=== PATIENT | male | born 1965 | race Caucasian/White ===

== ENCOUNTER 2019-04-06 07:18 | Day surgery (SDC) | payer OTHER ==
[2019-04-04 16:17] VITALS: BMI 32.3
[2019-04-06] MEDS ORDERED: LIDOCAINE HCL/PF 2% SDV 5ML VIAL ONE (08:26)
[2019-04-06] MEDS ORDERED: PROPOFOL 20 ML ONE ×3 (08:26→09:36)
[2019-04-06] MEDS ORDERED: DEXAMETHASONE SOD PHOSPHATE 4 MG/1 ML VIAL ONE (08:27)
[2019-04-06] MEDS ORDERED: KETOROLAC TROMETHAMINE 30 MG/1 ML VIAL ONE (08:27)
[2019-04-06] MEDS ORDERED: MIDAZOLAM HCL 2 MG/2 ML SINGLE DOSE VIAL ONE ×3 (08:28→08:34)
[2019-04-06] MEDS ORDERED: DEXAMETHASONE SOD PHOSPHATE/PF 10 MG/ML SDV ONE (08:31)
[2019-04-06] MEDS ORDERED: BUPIVACAINE HCL/PF 0.5% (5 MG/ML) 30 ML VIAL IJ ONE (08:31)
--- NOTE | 2019-04-06 08:52 | HP ---
Satellite [facility] - Chief Complaint Chief Complaint: left shoulder pain - Past Medical History Allergies/Adverse Reactions: Allergies Allergy/AdvReac Type Severity Reaction Status Date / Time No Known Allergies Allergy Verified 04/06/19 08:01 - Current Medications Current Medications: Home Medications Medication Instructions Recorded Rosuvastatin Calcium [Crestor] 5 mg PO HS 04/04/19 Sertraline HCl [Zoloft] 50 mg PO DAILY 04/04/19 Oxycodone HCl/Acetaminophen 1 - 2 tab PO Q6H #30 tab MDD 6 04/06/19 [Percocet 5-325 mg Tablet] Satellite Physical Exam - Physical Examination Vital Signs: Vital Signs Period Temp Pulse Resp BP Sys/Santoyo Pulse Ox Last 24 Hr 97.4 F 62 18 128/86 97 General Appearance: Well Nourished, Well Developed, Alert & Oriented x3 ENT: Clear Lung: Normal air movement Heart: Regular rate & rhythm Extremities: Other (left shoulder- + ttp, decr rom , + empty can, + neer, + moser, nvi, MRI + rct) Neurological: Intact, Alert, Oriented Satellite Impression/Plan - Impression/Plan Impression: left shoulder rct Operative Procedure: left shoulder arthroscopy with RCR, SAD Date to be Performed: 04/06/19
[2019-04-06] MEDS ORDERED: oxyCODONE HCL 5 MG TABLET PO PRN ×2 (08:53)
[2019-04-06] MEDS ORDERED: ONDANSETRON 4 MG/2 ML VIAL IVPUSH PRN (08:53)
[2019-04-06] MEDS ORDERED: LACTATED RINGERS SOLUTION 1,000 ML IV SCH (09:00)
[2019-04-06] MEDS ORDERED: ceFAZolin 2 GRAM PREMIX BAG IVPB ONE (09:28)
[2019-04-06] MEDS ORDERED: ceFAZolin SODIUM 1 GM VIAL ONE (09:32)
[2019-04-06] MEDS ORDERED: SODIUM CHLORIDE 0.9% P/F 10 ML VIAL IJ ONE (09:32)
[2019-04-06] MEDS ORDERED: oxyCODONE HCL 10 MG SUSTAINED ACTING TABLET PO SCH (10:00)
[2019-04-06] MEDS ORDERED: DESFLURANE GAS 240 ML BOTTLE IH ONE (10:24)
--- NOTE | 2019-04-06 10:29 | OP ---
Operative Note - Note: Operative Date: 04/06/19 ([facility]) Pre-Operative Diagnosis: left shoulder rct Operation: left shoulder arthroscopy with RCR, SAD Post-Operative Diagnosis: Same as Pre-op Surgeon: Richard Tello Waste Minimization Technician: Quentin Etienne Anesthesiologist/SUPERVISOR SEWING DEPARTMENT: Fidencio Clemente Anesthesia: General, Local Specimens Removed: shavings Estimated Blood Loss (mls): 5
[2019-04-06] MEDS ORDERED: ACETAMINOPHEN INJECTION 100 ML IVPB ONE (10:57)
[2019-04-06] MEDS ORDERED: ACETAMINOPHEN 1000 MG/100 ML VIAL (NON FORMULARY) IVPB ONE ×2 (11:00)
[2019-04-06 11:54] VITALS: TEMP 97.5
[2019-04-06] MEDS ORDERED: ONDANSETRON 4 MG/2 ML VIAL IVPUSH ONE (13:02)
[2019-04-06] MEDS ORDERED: ONDANSETRON 4 MG/2 ML VIAL ONE (13:04)
[2019-04-06 14:13] VITALS: BP 120/80; PULSE 70
--- NOTE | 2019-04-06 21:06 | OP ---
DATE OF OPERATION: 04/06/2019 PREOPERATIVE DIAGNOSIS: Left rotator cuff tear. POSTOPERATIVE DIAGNOSIS: Left rotator cuff tear. PROCEDURE: Arthroscopy left shoulder, subacromial decompression, and rotator cuff repair. SURGICAL ATTENDING: Richard Tello MD STEAM CRANE OPERATOR: PATRICIA Calderon ANESTHESIA: Regional and general. CLOSURE: Two SwiveLocks with suture for rotator cuff, 3-0 nylon for skin. ESTIMATED BLOOD LOSS: Negligible. COMPLICATIONS: None. CONDITION: To the recovery room in stable condition. DESCRIPTION OF PROCEDURE: Patient was taken to the operating room on April 06, 2019. Regional and general anesthesia were administered by the anesthesiologist. IV Kefzol was administered prophylactically prior to the case. Patient was placed in the beach chair position with all prominences well padded. The left shoulder area was prepped and draped in the usual sterile fashion. First, a diagnostic arthroscopy of the glenohumeral joint was performed. The posterior portal was made 2 fingerbreadths below the acromion, 1st with a 15 blade followed by a blunt trocar. Circumferential exam of the glenohumeral joint revealed the following: Intact glenohumeral head articular cartilage, intact biceps and biceps anchor, intact labrum circumferentially, loose bodies in the axillary pouch. Subscapularis was intact through its insertion. Looking superiorly, the rotator cuff was found to have at least a high-grade partial-thickness tear near supraspinatus insertion. The fluid was drained from the shoulder, and the trocar was removed. The posterior trocar was redirected in the subacromial space. The accessory lateral portal was made with a 15 blade followed by a blunt trocar. A large amount of subacromial bursal tissue was entered. This was debrided using the ArthroCare and the shaver. The large subacromial spur was seen anteriorly. An acromioplasty was performed gaining sufficient height for the rotator cuff underneath. Coracoid acromial ligament was identified and detached off the anterior acromion and was further debrided. Looking inferiorly, soft tissue encased in the humeral head was debrided using the shaver and the ArthroCare device. The rotator cuff was found to have a high-grade partial-thickness tear. Gentle probing near the greater tuberosity revealed that the thickness of the rotator cuff was minimal at best. This area was shaved, which produced and visualized the undersurface tear. The leading edge was debrided. The bony surface underneath was debrided as was soft tissue getting a bleeding surface for re-implantation. Two horizontal mattress SutureTape sutures were placed, 1 anterior, 1 posteriorly, and they were fixated to 2 SwiveLocks, 1 anterior, 1 posteriorly reducing the rotator cuff to the greater tuberosity. The sutures were cut snugly to bone. A range of motion revealed excellent stability of the repair as well as excellent clearance in the subacromial space. The fluid was drained. The portals were closed using 3-0 nylon. Sterile Aquacel dressing followed by shoulder immobilizer applied. Patient awakened from anesthesia and transferred to recovery room in stable condition. No complications. Estimated blood loss negligible. Madhav STOUT/[id number]
--- NOTE | 2019-04-08 18:15 | PATH ---
Surgical Pathology Report Patient Name: JIN BAKER Med. Rec. #: [id number] /Age/Gender: 1965 (Age: 53) / M Account: [id number] Location: [facility] Taken: 04/06/2019 Received: 04/07/2019 Reported: 04/08/2019 Physicians: Richard Tello M.D. Specimen(s) Received SHOULDER SHAVINGS, LEFT Clinical History Tear of left shoulder Final Diagnosis SHOULDER SHAVINGS, LEFT, ARTHROSCOPY AND SUBACROMIAL DECOMPRESSION: FRAGMENTS OF BENIGN CARTILAGE, BONE, DENSE FIBROCONNECTIVE TISSUE, ADIPOSE TISSUE, AND SKELETAL MUSCLE. Electronically Signed Misty Loya M.D. Gross Description Received in formalin, labeled "left shoulder shavings," is a 4.5 x 4.0 x 0.4 cm. aggregate of spivey-yellow soft tissue fragments. A metals sales representative portion is submitted in one cassette. DL/04/07/2019 saudi04/07/2019
== END 2019-04-06 13:45 | disposition home or self-care (01) ==
LOC: JASU-SURG 07:18
PROVIDERS: ATTEND Orthopaedic Surgery
PROC: 0LQ24ZZ Repair Left Shoulder Tendon, Percutaneous Endoscopic Approach (ICD-10-PCS; principal; 2019-04-06 09:00)
PROC: 0RNK4ZZ Release Left Shoulder Joint, Percutaneous Endoscopic Approach (ICD-10-PCS; 2019-04-06 09:00)
DX: M75.102 Unspecified rotator cuff tear or rupture of left shoulder, not specified as traumatic (principal)
CPT/HCPCS: 88304-TC; 94760; J0131

== ENCOUNTER 2022-03-26 04:02 | Day surgery (SDC) | payer OTHER ==
[~2022-03-26 04:02] MED LIST: ceFAZolin SODIUM 1 GM VIAL IVPB ONE
[2022-03-26 07:17] VITALS: BMI 30.5
[2022-03-26] MEDS ORDERED: PROPOFOL 40 ML ONE ×2 (07:23→11:11)
[2022-03-26] MEDS ORDERED: MIDAZOLAM HCL 2 MG/2 ML SINGLE DOSE VIAL ONE (07:23)
[2022-03-26] MEDS ORDERED: ROPIVACAINE HCL 0.5% 30ML VIAL ONE (07:28)
[2022-03-26] MEDS ORDERED: DEXAMETHASONE SOD PHOSPHATE 10 MG/1 ML VIAL ONE (07:52)
[2022-03-26] MEDS ORDERED: ceFAZolin SODIUM 1 GM VIAL IVPB ONE (09:05)
[2022-03-26] MEDS ORDERED: ONDANSETRON 4 MG/2 ML VIAL IVPUSH PRN (10:20)
[2022-03-26] MEDS ORDERED: ROCURONIUM BROMIDE 50 MG/5 ML SYRINGE ONE (11:11)
[2022-03-26] MEDS ORDERED: LIDOCAINE HCL 2% 100 MG/5 ML DISP.SYRIN ONE (11:14)
[2022-03-26 11:32] VITALS: RESP 20
[2022-03-26 12:18] VITALS: BP 118/69; PULSE 82; TEMP 98.4
== END 2022-03-26 13:00 | disposition home or self-care (01) ==
LOC: JASU-SURG 04:02
PROVIDERS: ATTEND Orthopaedic Surgery
PROC: 0RNJ4ZZ Release Right Shoulder Joint, Percutaneous Endoscopic Approach (ICD-10-PCS; principal; 2022-03-26 08:45)
PROC: 0LM14ZZ Reattachment of Right Shoulder Tendon, Percutaneous Endoscopic Approach (ICD-10-PCS; 2022-03-26 08:45)
DX: M75.101 Unspecified rotator cuff tear or rupture of right shoulder, not specified as traumatic (principal)
CPT/HCPCS: 94760; C1713; J1100